=== PATIENT | male | born 1975 | race Caucasian/White ===

== ENCOUNTER 2017-01-01 06:40 | Emergency (ER) | payer MEDICAID ==
[2017-01-01] MEDS ORDERED: KETOROLAC 30 MG/1 ML ONE (07:25)
== END 2017-01-01 09:35 | disposition home or self-care (01) ==
LOC: ED 06:40
DX: M79.661 Pain in right lower leg (principal); G89.29 Other chronic pain
CPT/HCPCS: 99284

== ENCOUNTER 2017-01-04 12:16 | Emergency (ER) | payer MEDICAID ==
[~2017-01-04] VITALS: Ht 188 cm; Wt 115.6 kg
[2017-01-04] MEDS ORDERED: ALBUTEROL/IPRATROPIUM 2.5MG/0.5MG, 3 ML ONE (12:47)
[2017-01-04] MEDS ORDERED: ALBUTEROL/IPRATROPIUM 2.5MG/0.5MG, 3 ML NPPB ONE ×2 (13:00→13:30)
[2017-01-04 14:45] VITALS: BP 174/104
== END 2017-01-04 15:46 | disposition home or self-care (01) ==
LOC: ED 13:15
DX: J20.8 Acute bronchitis due to other specified organisms (principal); B97.89 Other viral agents as the cause of diseases classified elsewhere
CPT/HCPCS: 71020; 93005; 94640; 99284; J7620